=== PATIENT | male | born 2000 | race Caucasian/White ===

== ENCOUNTER 2019-08-20 05:33 | Emergency (ER) | payer OTHER ==
[2019-08-20] MEDS ORDERED: HYDROmorphone 1 MG/ML Syringe IVPUSH ONE (05:41)
[2019-08-20] MEDS ORDERED: Ondansetron 4 MG/2 ML SDV IVPUSH ONE (05:41)
[2019-08-20] MEDS ORDERED: Lactated Ringers 1,000 ML IV SCH (05:45)
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
[2019-08-20] MEDS ORDERED: Iopamidol 612 MG/ML 50 ML SDV IVPUSH ONE (07:11)
[2019-08-20] MEDS ORDERED: Iopamidol 612 MG/ML 100 ML Bottle IVPUSH ONE (07:11)
[2019-08-20] MEDS: Sodium Chloride 0.9% 10 ML Syringe FLUSH PRN ×2 (07:17→07:23)
--- NOTE | 2019-08-20 07:57 | CT ---
CT chest Technique: Multiple axial sections were obtained from above the lung apices inferiorly through the lung bases. Intravenous contrast was utilized. Findings: Lung windows show no acute parenchymal change. No pleural effusions are seen. No pneumothorax is identified. Mediastinum and hilar region show no adenopathy. Aorta shows no aneurysm. No pericardial thickening is seen. Bone window settings were reviewed. No discrete osseous finding is seen. Impression: 1. Nothing acute is appreciated on CT study of the chest. Diagnostic code #1 CT abdomen and pelvis Technique: Multiple axial sections were obtained from above the dome of the diaphragm inferiorly through the pubic symphysis. Intravenous contrast was utilized. No oral contrast has been given. Findings: Liver contains no focal abnormality. Spleen appears within normal limits. Adrenal glands show no nodule. Pancreas shows no discrete abnormality. Several small cysts noted within the cortex of left kidney. Kidneys show no acute finding. Aorta shows no aneurysm. Gallbladder contains no calcified gallstones. No retroperitoneal adenopathy or mesenteric abnormalities are seen. No free fluid or inflammatory change is appreciated. Delayed images shows contrast within the distal ureters and within the bladder. Bone window settings were reviewed. There are no acute osseous finding is appreciated. Impression: 1. Nothing acute is appreciated on CT study of the abdomen and pelvis. Diagnostic code #1 This report was dictated in MDT
--- NOTE | 2019-08-20 14:17 | CR ---
Left ankle: 4 views left ankle were obtained. Comparison: No previous ankle study. Ankle mortise is symmetric. No acute fracture, dislocation or other bony abnormality is appreciated. Impression: 1. No abnormality is appreciated on 3 view left ankle exam. Diagnostic code #1 This report was dictated in MDT
--- NOTE | 2019-08-20 14:26 | CR ---
Left foot: 4 views left foot were obtained. Comparison: No prior foot exam. Joint spaces are preserved. No acute fracture, dislocation or other bony abnormalities appreciated. Impression: 1. No abnormality is appreciated on 4 view left foot exam. Diagnostic code #1 This report was dictated in MDT
== END 2019-08-20 10:07 | disposition home or self-care (01) ==
LOC: JD.ED 05:33
DX: S93.402A Sprain of unspecified ligament of left ankle, initial encounter (principal); S80.812A Abrasion, left lower leg, initial encounter; S80.811A Abrasion, right lower leg, initial encounter; F15.10 Other stimulant abuse, uncomplicated; F17.210 Nicotine dependence, cigarettes, uncomplicated; V58.6XXA Passenger in pick-up truck or van injured in noncollision transport accident in traffic accident, initial encounter
CPT/HCPCS: 36415; 71260; 73610; 73630; 74177; 80053; 85007; 85027; 85610; 85730; 96374; 96375; 99285; J1170; J2405; J7120; Q9967; 99283